=== PATIENT | female | born 1950 | race African-American/Black ===

== ENCOUNTER 2016-06-09 23:13 | Emergency (ER) | payer OTHER ==
[~2016-06-09] VITALS: Ht 160 cm; Wt 55.3 kg
[2016-06-09 23:30] VITALS: BP 143/84
[2016-06-09] MEDS ORDERED: TdaP Vaccine 0.5ml Syr IM ONE (23:45)
[2016-06-09 23:55] VITALS: BP 143/84
--- NOTE | 2016-06-10 01:27 | Emergency Room Report ---
History of Present Illness General Chief Complaint: Laceration Source: Patient Present Illness HPI Patient is a 66-year-old female who presented after having increased pain to her right eyebrow. Patient had been leaning forward when she reportedly hit a door handle. She denied loss of consciousness she reported having moderate pain. She presented after increased bleeding to a laceration above her eye. She denied visual changes. Allergies: Coded Allergies: SULFITE (Unverified Allergy, Unknown, 12/03/14) Patient History Past Medical History: see triage record Reviewed Nursing Documentation: PMH: Agreed, PSxH: Agreed Nursing Documentation-PMH Hx Hypertension: Yes Hx Asthma: Yes Review of Systems All Other Systems: negative except mentioned in HPI Physical Exam Vital Signs Date Time Temp Pulse Resp B/P Pulse Ox O2 Delivery O2 Flow Rate FiO2 06/09/16 23:24 97.5 92 16 143/84 98 Room Air General Appearance: well appearing, no apparent distress, alert, GCS 15 Head: normocephalic, atraumatic ENT: hearing grossly normal, normal voice Neck: full range of motion, supple Respiratory: no respiratory distress, speaking full sentences Gastrointestinal: normal inspection Musculoskeletal: normal inspection, no calf tenderness Neurologic: normal inspection, alert, oriented x3, responsive, normal gait Psychiatric: mood/affect normal Skin: no rash, laceration - 1 cm Procedures Laceration/Wound Repair Laceration/Wound Repair : Consent: Verbal Wound Location: face Wound's Depth, Shape: superficial Wound Length (cm): 1 Wound Explored: clean Wound Debrided: minimal Wound Repaired With: Dermabond Patient Tolerated: Well Complications: None Medical Decision Making Diagnostic Impression: Primary Impression: Laceration ER Course Patient presented for laceration. Differential diagnoses included foreign body , nerve injury, arterial injury among others. Patient's benign exam and does not appear to require any further imaging or laboratory testing at this time. Wound is closed with Dermabond. The tetanus vaccine was updated. The patient is advised to follow up with primary care doctor in 3 days. Patient is advised to return if any worsening condition or if any changes in status that are concerning. Last Vital Signs Date Time Temp Pulse Resp B/P Pulse Ox O2 Delivery O2 Flow Rate FiO2 06/09/16 23:55 97.5 81 16 143/84 98 Room Air Status: improved Disposition: HOME, SELF-CARE Condition: Stable Referrals: NOT CHOSEN IPA/MD,REFERRING Patient Instructions: Laceration Care, Adult Mack Mascorro Jun 10, 2016 01:27
== END 2016-06-09 23:59 | disposition home or self-care (01) ==
LOC: EMR 23:40
DX: S01.81XA Laceration without foreign body of other part of head, initial encounter (principal); Z23 Encounter for immunization; I10 Essential (primary) hypertension; J45.909 Unspecified asthma, uncomplicated; Z88.8 Allergy status to other drugs, medicaments and biological substances; W22.09XA Striking against other stationary object, initial encounter; Y92.9 Unspecified place or not applicable; Y99.8 Other external cause status
CPT/HCPCS: 90471; 90715